=== PATIENT | female | born 1990 | race Caucasian/White ===

== ENCOUNTER 2017-04-15 14:21 | Emergency (ER) | payer SELFPAY ==
[2017-04-15 14:29] VITALS: BP 138/85
--- NOTE | 2017-04-15 15:19 | ER Document Report ---
HPI - HPI Patient complains to provider of: medication refill Pain Level: 3 Context: 27 yo female comes to ED today requesting refills of her Suboxone and Adderall. Pt reports her last dose was yesterday. Pt reports she is new to [facility] and had not established with primary care yet. Associated Symptoms: None Exacerbated by: Denies Relieved by: Denies Similar symptoms previously: No Recently seen / treated by doctor: No - DERM Skin Color: Normal Past Medical History - General Information source: Patient - Social History Smoking Status: Current Every Day Smoker Frequency of alcohol use: Social Drug Abuse: None Lives with: Family Family History: Reviewed & Not Pertinent Renal/ Medical History: Denies: Hx Peritoneal Dialysis Vertical Provider Document - CONSTITUTIONAL Agree With Documented VS: Yes Exam Limitations: No Limitations - INFECTION CONTROL TRAVEL OUTSIDE OF THE [place] IN LAST 30 DAYS: No - HEENT HEENT: Atraumatic, PERRLA - NECK Neck: Normal Inspection, Supple - RESPIRATORY Respiratory: Breath Sounds Normal, No Respiratory Distress O2 Sat by Pulse Oximetry: 97 - CARDIOVASCULAR Cardiovascular: Regular Rate, Regular Rhythm - GI/ABDOMEN Gastrointestinal: Abdomen Soft, Abdomen Non-Tender - MUSCULOSKELETAL/EXTREMETIES Musculoskeletal/Extremeties: CHACORTA KIRK - NEURO Level of Consciousness: Awake, Alert, Appropriate - DERM Integumentary: Warm, Dry Course - Re-evaluation Re-evalutation: 04/15/17 15:22 pt is alert, VSS. pt is not exhibiting any s/s withdrawl. pt was informed the ED does not refill Suboxone or Adderall and that she would have to get established with a primary care provider who can prescribe these medications. pt acknowledges understanding. pt is stable for discharge - Vital Signs Vital signs: Temp Pulse Resp BP Pulse Ox 98.8 F 107 H 16 138/85 H 97 04/15/17 14:25 04/15/17 14:25 04/15/17 14:25 04/15/17 14:25 04/15/17 14:25 Discharge - Discharge Clinical Impression: Medication refill Condition: Stable Disposition: HOME, SELF-CARE Additional Instructions: We are unable to refill your Suboxone and Adderall here in the ED I recommend you call local practices to establish care Referrals: QUINCY CHAVEZ MD [ACTIVE STAFF] - Follow up as needed
== END 2017-04-15 15:25 | disposition home or self-care (01) ==
LOC: ER 14:21
DX: Z76.0 Encounter for issue of repeat prescription (principal); Z79.899 Other long term (current) drug therapy; F17.200 Nicotine dependence, unspecified, uncomplicated
CPT/HCPCS: 99281

== ENCOUNTER 2017-05-08 12:20 | Emergency (ER) | payer SELFPAY ==
[2017-05-08 12:33] VITALS: BP 124/66
--- NOTE | 2017-05-08 13:16 | EKG REPORT ---
SEVERITY:- OTHERWISE NORMAL ECG - SINUS TACHYCARDIA : Confirmed by: Mk Torres MD 08-May-2017 13:15:52
[2017-05-08] MEDS ORDERED: KETOROLAC TROMETHAMINE 60 MG/2 ML SDV IM ONE (15:13)
--- NOTE | 2017-05-08 15:17 | ER Document Report ---
ED General - General Chief Complaint: Chest Pain Stated Complaint: CHEST PAIN Time Seen by Provider: 05/08/17 15:00 Notes: 27-year-old female presents the emergency department complaining of severe chest pain. 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 States that this began with a cough 2 weeks ago, 3 days ago she developed chest pain and 2 days ago she developed left arm pain. States that the pain is worse when she lays back flat. Denies any true shortness of breath just states it hurts too badly to take a deep breath. Denies any fevers, nausea, vomiting, diarrhea. Never had symptoms like this before, no cardiac history. TRAVEL OUTSIDE OF THE [place] IN LAST 30 DAYS: No - HPI Quality of pain: Sharp, Stabbing Past Medical History - General Information source: Patient - Social History Smoking Status: Current Every Day Smoker Chew tobacco use (# tins/day): No Frequency of alcohol use: None Drug Abuse: None Family History: Reviewed & Not Pertinent Renal/ Medical History: Denies: Hx Peritoneal Dialysis - Immunizations Hx Diphtheria, Pertussis, Tetanus Vaccination: Yes Review of Systems - Review of Systems Constitutional: No symptoms reported EENT: No symptoms reported Cardiovascular: See HPI Respiratory: See HPI Gastrointestinal: No symptoms reported Musculoskeletal: See HPI -: Yes All other systems reviewed and negative Physical Exam - Vital signs Vitals: Temp Pulse Resp BP Pulse Ox 99.6 F 110 H 18 124/66 96 05/08/17 12:31 05/08/17 12:31 05/08/17 12:31 05/08/17 12:31 05/08/17 12:31 Interpretation: Tachycardic - Notes Notes: GENERAL: Alert, anxious, tearful. HEAD: Normocephalic, atraumatic EYES: Pupils equal, round and reactive to light, extraocular movements intact. ENT: Oral mucosa moist, tongue midline. NECK: Full range of motion, supple, trachea midline. LUNGS: Clear to auscultation bilaterally, no wheezes, rales or rhonchi, no respiratory distress. Chest pain is tender to palpation, HEART: Tachycardic rate and rhythm, no murmurs, gallops, rubs. ABDOMEN: Soft, nontender, nondistended, bowel sounds present in all 4 quadrants. EXTREMITIES: Moves all 4 extremities spontaneously, however she does guard her left upper extremity, prefers not to lift her left arm at the shoulder but is able to do this with pain. No deformity, no tenderness to palpation. No cyanosis. NEUROLOGICAL: Alert and oriented x3, normal speech. PSYCH: tearful. SKIN: Warm, Dry, normal turgor, multiple scabs in various stages of healing across her body, no track dean noted. Course - Re-evaluation Re-evalutation: 05/08/17 17:13 CBC shows leukocytosis with a white count of 10.6, anemia with hemoglobin 9.7, CMP grossly unremarkable, lipase normal, chest x-ray shows multicentric left lower lobe pneumonia. Cardiac enzymes are negative, EKG is nonischemic. Multicentric left lower lobe pneumonia is consistent with her history of 2 weeks of cough and chills associated with left-sided chest pain and shortness of breath. Patient is only mildly tachycardic, she is not febrile, she is not tachypnea, she does not have any hypoxia, patient does not have any risk factors that make her high risk for discharge home such as pre-existing lung disease or diabetes, patient will be trialed on oral antibiotics as an outpatient along with steroids and breathing treatments as well as cough suppressant drops and Phenergan with codeine syrup. Patient will be discharged home. 05/08/17 17:49 On reexamination patient is feeling much better, looks much better, no longer crying with pain, states her pain is controlled. Patient informed that she is , will follow up with the health department as an outpatient. - Vital Signs Vital signs: Temp Pulse Resp BP Pulse Ox 99.6 F 110 H 18 124/66 96 05/08/17 12:31 05/08/17 12:31 05/08/17 12:31 05/08/17 12:31 05/08/17 12:31 - Laboratory Result Diagrams: 05/08/17 15:44 05/08/17 15:44 Laboratory results interpreted by me: 05/08/17 05/08/17 05/08/17 15:44 15:44 15:44 WBC 10.6 H RBC 3.17 L Hgb 9.7 L Hct 28.1 L Seg Neutrophils % 81.2 H Lymphocytes % 8.9 L Absolute Neutrophils 8.6 H BUN 4 L Creatinine 0.51 L Alkaline Phosphatase 133 H Lipase < 10.0 L Serum HCG, Qual POSITIVE H - EKG Interpretation by Me Additional EKG results interpreted by me: 05/08/17 17:14 EKG shows sinus tachycardia at a rate of 109, normal axis, normal intervals, no ST segment elevations or depressions, isolated T-wave inversions noted in lead III which are non-specific per my interpretation. Discharge - Discharge Clinical Impression: First trimester Left lower lobe pneumonia Qualifiers: Pneumonia type: due to unspecified organism Qualified Code(s): J18.1 - Lobar pneumonia, unspecified organism Condition: Stable Disposition: HOME, SELF-CARE Additional Instructions: Pneumonia Your examination indicates that you have pneumonia. This is an infection of the lung tissue, usually caused by bacteria or a virus. Symptoms include cough, fever, shaking chills, chest pain, shortness of breath, and coughing up bloody sputum. Treatment for bacterial pneumonia includes rest, antibiotics for 10 days, increasing your clear liquid intake, a cool mist humidifier at your bedside, and fever medication. Often, a repeat chest X-ray is performed in a few weeks-- even if you feel better--to ascertain whether the infection has completely resolved and no underlying lung problem is present. You should call the physician if you develop persistent vomiting, high fever that does not respond to fever medication, increasing shortness of breath , confusion, or lethargy. Also, failure to improve within two to three days is an indication for re-examination. You are . All of the medications I prescribed are safe in early . You need to follow-up with the provider of your choice regarding your . The health department is able to see you and help you to receive coverage through Medicare/Medicaid for your . They are also able to help set you up for appointments, ultrasounds, WIC and many other forms of assistance that may help you with this . You are . care is best started as early in as possible. You should take only medications approved by your physician. Acetaminophen can safely be taken for minor pains. As a rule, medication for chronic conditions such as asthma or seizures can safely be continued. You should discuss with the physician every medicine you take. Any regular exercise program can be continued. Talk to your physician, however, before engaging in competitive or demanding sports. Alcohol, smoking, and "street drugs" are dangerous to your baby. Cocaine is especially dangerous. Don't use any illicit drugs! Prescriptions: Benzonatate [Tessalon Perles 100 mg Capsule] 100 mg PO Q8HP PRN #40 capsule PRN Reason: Albuterol Sulfate [Ventolin HFA MDI 18 GM] 1 - 2 puff IH Q4H PRN #1 mdi PRN Reason: Amox Tr/Potassium Clavulanate [Augmentin 875-125 Tablet] 1 tab PO BID 10 Days tablet Phenylephrine HCl/Cod/Prometh [Phenergan Vc-Codeine Syrup] 5 ml PO QIDP PRN # 120 syrup PRN Reason: Prednisone 60 mg PO DAILY #15 tablet Forms: Return to Work Referrals: JOSE RANGEL DO [NO LOCAL MD] - [facility] - Follow up in 1 week
[2017-05-08 16:00] LABS: ABSOLUTE EOSINOPHILS # (AUTO) 0.1 10^3/uL (0.0-0.6); ABSOLUTE LYMPHOCYTES (AUTO) 0.9 10^3/uL (0.5-4.7); ABSOLUTE MONOCYTES (AUTO) 0.9 10^3/uL (0.1-1.4); ABSOLUTE NEUT (AUTO) 8.6 10^3/uL (1.7-8.2); BASOPHILS % (AUTO) 0.3 % (0-2); EOSINOPHILS % (AUTO) 1.1 % (0-6); HEMATOCRIT 28.1 % (36.0-47.0); HEMOGLOBIN 9.7 g/dL (12.0-15.5); LYMPHOCYTES % (AUTO) 8.9 % (13-45); MEAN CORPUSCULAR HEMOGLOBIN 30.5 pg (27.0-33.4); MEAN CORPUSCULAR HGB CONC 34.4 g/dL (32.0-36.0); MEAN CORPUSCULAR VOLUME 89 fl (80-97); MONOCYTES % (AUTO) 8.5 % (3-13); RED BLOOD COUNT 3.17 10^6/uL (3.72-5.28); RED CELL DISTRIBUTION WIDTH 13.7 % (11.5-14.0); SEGMENTED NEUTROPHILS % (AUTO) 81.2 % (42-78); WHITE BLOOD COUNT 10.6 10^3/uL (4.0-10.5)
[2017-05-08 16:20] LABS: ALANINE AMINOTRANSFERASE 33 U/L (9-52); ALBUMIN 3.7 g/dL (3.5-5.0); ALKALINE PHOSPHATASE 133 U/L (38-126); ANION GAP 11 (5-19); ASPARTATE AMINO TRANSFERASE 20 U/L (14-36); BILIRUBIN,DIRECT 0.4 mg/dL (0.0-0.4); BILIRUBIN,TOTAL 0.5 mg/dL (0.2-1.3); BLOOD UREA NITROGEN 4 mg/dL (7-20); CALCIUM 8.9 mg/dL (8.4-10.2); CARBON DIOXIDE 26 mmol/L (22-30); CHLORIDE 100 mmol/L (98-107); CREATINE KINASE 42 U/L (30-135); CREATININE RESULT 0.51 mg/dL (0.52-1.25); GLUCOSE 85 mg/dL (75-110); POTASSIUM 4.5 mmol/L (3.6-5.0); SODIUM 137.3 mmol/L (137-145); TOTAL PROTEIN 6.9 g/dL (6.3-8.2)
[2017-05-08 16:22] LABS: LIPASE < 10.0 U/L (23-300)
[2017-05-08 16:31] LABS: CREATINE KINASE MB 0.23 ng/mL (<4.55)
--- NOTE | 2017-05-08 16:31 | RADIOLOGY REPORT (SQ) ---
EXAM DESCRIPTION: CHEST PA/LAT COMPLETED DATE/TIME: 05/08/2017 4:05 pm REASON FOR STUDY: pain with deep breath, chest pain at rest COMPARISON: None. EXAM PARAMETERS: NUMBER OF VIEWS: two views TECHNIQUE: Digital Frontal and Lateral radiographic views of the chest acquired. RADIATION DOSE: NA LIMITATIONS: none FINDINGS: LUNGS AND PLEURA: The lungs are hyperexpanded. There is ill-defined opacification in ante rior aspect of left lower lung and possibly posterior opacification on the lateral view. MEDIASTINUM AND HILAR STRUCTURES: No masses or contour abnormalities. HEART AND VASCULAR STRUCTURES: Heart normal size. No evidence for failure. BONES: No acute findings. HARDWARE: None in the chest. OTHER: No other significant finding. IMPRESSION: Cannot exclude multicentric pneumonia in the left lower lung. TECHNICAL DOCUMENTATION: JOB ID: [id number] [employer]- All Rights Reserved
[2017-05-08 16:34] LABS: TROPONIN I < 0.012 ng/mL
== END 2017-05-08 17:53 | disposition home or self-care (01) ==
LOC: ER 12:20
DX: J18.1 Lobar pneumonia, unspecified organism (principal); R07.9 Chest pain, unspecified; F17.200 Nicotine dependence, unspecified, uncomplicated; M79.602 Pain in left arm; Z3A.00 Weeks of gestation of pregnancy not specified
CPT/HCPCS: 93005; 99285; 96372; 36415; 82553; 82550; 83690; 84703; 85025; 80053; 84484; 71020; 93010; J1885

== ENCOUNTER 2019-07-23 09:39 | Emergency (ER) | payer MEDICAID ==
--- NOTE | 2019-07-23 09:49 | ER Document Report ---
ED Medical Screen (RME) - General Chief Complaint: Abdominal Pain Stated Complaint: ABDOMINAL PAIN Time Seen by Provider: 07/23/19 09:47 Mode of Arrival: Ambulatory Information source: Patient Notes: 29-year-old female with no prior history presents to the emergency department in [facility]. Reports she is having severe abdominal pain generalized. Reports it started last night when she was wrapping presents. She denies fever vomiting diarrhea. Denies pain with void. Reports she was able to eat a couple bites of muffins this morning. Patient is tender to palpate no matter where I palpate on her abdomen. I have greeted and performed a rapid initial assessment of this patient. A comprehensive ED assessment and evaluation of the patient, analysis of test results and completion of the medical decision making process will be conducted by additional ED providers. TRAVEL OUTSIDE OF THE [place] IN LAST 30 DAYS: No Past Medical History Renal/ Medical History: Denies: Hx Peritoneal Dialysis - Immunizations Hx Diphtheria, Pertussis, Tetanus Vaccination: Yes Physical Exam - Vital signs Vitals: Temp Pulse Resp BP Pulse Ox 97.5 F 115 H 24 H 112/64 99 07/23/19 09:42 07/23/19 09:42 07/23/19 09:42 07/23/19 09:42 07/23/19 09:42 Course - Vital Signs Vital signs: Temp Pulse Resp BP Pulse Ox 97.5 F 115 H 24 H 112/64 99 07/23/19 09:42 07/23/19 09:42 07/23/19 09:42 07/23/19 09:42 07/23/19 09:42
[2019-07-23 10:13] LABS: HEMATOCRIT 37.8 % (36.0-47.0); HEMOGLOBIN 12.3 g/dL (12.0-15.5); MEAN CORPUSCULAR HEMOGLOBIN 29.5 pg (27.0-33.4); MEAN CORPUSCULAR HGB CONC 32.6 g/dL (32.0-36.0); MEAN CORPUSCULAR VOLUME 91 fl (80-97); PLATELET COUNT 268 10^3/uL (150-450); RED BLOOD COUNT 4.18 10^6/uL (3.72-5.28); WHITE BLOOD COUNT 17.7 10^3/uL (4.0-10.5)
[2019-07-23 10:29] LABS: ABSOLUTE LYMPHOCYTES# (MANUAL) 0.7 10^3/uL (0.5-4.7); ALBUMIN 4.2 g/dL (3.5-5.0); ALKALINE PHOSPHATASE 50 U/L (38-126); ANION GAP 11 (5-19); ASPARTATE AMINO TRANSFERASE 19 U/L (14-36); BAND NEUTROPHILS % (MANUAL) 7 % (3-5); BASOPHILS % (MANUAL) 0 % (0-2); BILIRUBIN,DIRECT 0.1 mg/dL (0.0-0.4); BILIRUBIN,TOTAL 0.7 mg/dL (0.2-1.3); BLOOD UREA NITROGEN 14 mg/dL (7-20); CALCIUM 9.2 mg/dL (8.4-10.2); CARBON DIOXIDE 26 mmol/L (22-30); CHLORIDE 101 mmol/L (98-107); EOSINOPHILS % (MANUAL) 0 % (0-6); GLUCOSE 99 mg/dL (75-110); LYMPHOCYTES % (MANUAL) 4 % (13-45); MONOCYTES % (MANUAL) 0 % (3-13); PLATELET COMMENT ADEQUATE; POTASSIUM 3.9 mmol/L (3.6-5.0); RBC MORPHOLOGY COMMENT NORMO-CYTIC/CHROMIC; SEGMENTED NEUTROPHILS % (MAN) 89 % (42-78); TOTAL CELLS COUNTED 100; TOTAL PROTEIN 7.6 g/dL (6.3-8.2)
[2019-07-23 10:34] LABS: APPEARANCE,URINE CLOUDY; BILIRUBIN,URINE SMALL (NEGATIVE); COLOR,URINE AMBER; GLUCOSE, URINE NEGATIVE (NEGATIVE); KETONES,URINE TRACE mg/dL (NEGATIVE); LEUKOCYTE ESTERASE,URINE MODERATE (NEGATIVE); NITRITE,URINE NEGATIVE (NEGATIVE); PROTEIN,URINE 100 mg/dL (NEGATIVE); URINE SPECIFIC GRAVITY 1.046
[2019-07-23] MEDS ORDERED: PHENAZOPYRIDINE HCL 200 MG TABLET PO ONE (10:44)
[2019-07-23] MEDS ORDERED: KETOROLAC TROMETHAMINE 60 MG/2 ML SDV IM ONE (10:44)
[2019-07-23] MEDS ORDERED: HYDROMORPHONE HCL INJ/PF 2 MG/ML AMPULE IV ONE ×2 (12:01→13:53)
[2019-07-23] MEDS ORDERED: ONDANSETRON HCL INJ/PF 4 MG/2 ML SDV IV ONE (12:01)
[2019-07-23] MEDS ORDERED: NORMAL SALINE 1000 ML 1,000 ML IV ONE (12:03)
--- NOTE | 2019-07-23 12:10 | ER Document Report ---
ED GI/ - General Mode of Arrival: Ambulatory Information source: Patient TRAVEL OUTSIDE OF THE [place] IN LAST 30 DAYS: No <JOSESITO XIONG - Last Filed: 07/23/19 15:36> <KARLY LAURENT - Last Filed: 07/23/19 20:16> - General Chief Complaint: Abdominal Pain Stated Complaint: ABDOMINAL PAIN Time Seen by Provider: 07/23/19 09:47 - HPI Notes: 07/23/19 12:05 Patient complains of generalized abdominal pain that started yesterday. Pain is sharp. Past surgical history includes . Patient denies any nausea or vomiting or urinary complaints. No chest pain or shortness of breath. She had a tattoo placed on the back of her neck approximately 1 week ago but no other trauma or procedures recently. The neck tattoo is healed without difficulty. Patient denies being . She denies any ill contacts. She says the pain started when she was wrapping presents last night. No skin findings. No other complaints. The pain has been constant. (JOSESITO XIONG) - Related Data Allergies/Adverse Reactions: No Known Allergies Allergy (Verified 07/23/19 09:59) Past Medical History - General Information source: Patient - Social History Smoking Status: Current Every Day Smoker Chew tobacco use (# tins/day): No Frequency of alcohol use: None Drug Abuse: None Family History: Reviewed & Not Pertinent Patient has suicidal ideation: No Patient has homicidal ideation: No Renal/ Medical History: Denies: Hx Peritoneal Dialysis - Immunizations Hx Diphtheria, Pertussis, Tetanus Vaccination: Yes <JOSESITO XIONG - Last Filed: 07/23/19 15:36> Review of Systems - Review of Systems Constitutional: denies: Chills, Fever Gastrointestinal: Abdominal pain. denies: Vomiting -: Yes All other systems reviewed and negative <JOSESITO XIONG - Last Filed: 07/23/19 15:36> Physical Exam - Vital signs Interpretation: Normal - General General appearance: Appears well, Alert - HEENT Head: Normocephalic, Atraumatic Eyes: Normal Pupils: PERRL - Respiratory Respiratory status: No respiratory distress Chest status: Nontender Breath sounds: Normal Chest palpation: Normal - Cardiovascular Rhythm: Regular Heart sounds: Normal auscultation Murmur: No - Abdominal Inspection: Normal Distension: No distension Bowel sounds: Normal Tenderness: Tender, Other - NO CVA TENDERNESS. No: Rebound Organomegaly: No organomegaly - Back Back: Normal, Nontender. No: CVA tenderness - Extremities General upper extremity: Normal inspection, Nontender, Normal color, Normal ROM, Normal temperature General lower extremity: Normal inspection, Nontender, Normal color, Normal ROM, Normal temperature, Normal weight bearing. No: Homero's sign - Neurological Neuro grossly intact: Yes Cognition: Normal Orientation: AAOx4 [place] Coma Scale Eye Opening: Spontaneous [place] Coma Scale Verbal: Oriented [place] Coma Scale Motor: Obeys Commands [place] Coma Scale Total: 15 Speech: Normal Motor strength normal: LUE, RUE, LLE, RLE Sensory: Normal - Psychological Associated symptoms: Normal affect, Normal mood - Skin Skin Temperature: Warm Skin Moisture: Dry Skin Color: Normal <JOSESITO XIONG - Last Filed: 07/23/19 15:36> - Vital signs Vitals: Temp Pulse Resp BP Pulse Ox 97.5 F 115 H 24 H 112/64 99 07/23/19 09:42 07/23/19 09:42 07/23/19 09:42 07/23/19 09:42 07/23/19 09:42 Course - Laboratory Result Diagrams: 07/23/19 09:55 07/23/19 09:55 <JOSESITO XIONG - Last Filed: 07/23/19 15:36> - Laboratory Result Diagrams: 07/23/19 09:55 07/23/19 09:55 <KARLY LAURENT - Last Filed: 07/23/19 20:16> - Re-evaluation Re-evalutation: 07/23/19 12:09 LABS REVIEWED. URINE APPEARS DIRTY WITH ELEVATED SQ EPI'S. (JOSESITO XIONG) - Vital Signs Vital signs: Temp Pulse Resp BP Pulse Ox 97.5 F 115 H 24 H 112/64 99 07/23/19 09:42 07/23/19 09:42 07/23/19 09:42 07/23/19 09:42 07/23/19 09:42 - Laboratory Laboratory results interpreted by me: 07/23/19 07/23/19 07/23/19 09:55 09:55 10:15 WBC 17.7 H Seg Neuts % (Manual) 89 H Band Neutrophils % 7 H Lymphocytes % (Manual) 4 L Monocytes % (Manual) 0 L Abs Neuts (Manual) 17.0 H Abs Monocytes (Manual) 0.0 L Lipase 13.1 L Urine Protein 100 H Urine Ketones TRACE H Urine Nitrite Urine Bilirubin SMALL H Urine Urobilinogen 2.0 H Ur Leukocyte Esterase MODERATE H Urine Ascorbic Acid 40 H 07/23/19 17:13 WBC Seg Neuts % (Manual) Band Neutrophils % Lymphocytes % (Manual) Monocytes % (Manual) Abs Neuts (Manual) Abs Monocytes (Manual) Lipase Urine Protein 30 H Urine Ketones Urine Nitrite POSITIVE H Urine Bilirubin Urine Urobilinogen 4.0 H Ur Leukocyte Esterase Urine Ascorbic Acid Discharge <JOSESITO XIONG - Last Filed: 07/23/19 15:36> <KARLY LAURENT - Last Filed: 07/23/19 20:16> - Discharge Clinical Impression: UTI (urinary tract infection), Bacterial vaginitis Abdominal pain Qualifiers: Abdominal location: generalized Qualified Code(s): R10.84 - Generalized abdominal pain Leukocytosis Qualifiers: Leukocytosis type: unspecified Qualified Code(s): D72.829 - Elevated white blood cell count, unspecified Condition: Fair Disposition: HOME, SELF-CARE Additional Instructions: Today in the emergency department your urinalysis did show definite evidence of a urinary tract infection. You also have evidence of bacterial vaginosis on the swab we obtained from your pelvic exam. This can sometimes be due to new soaps or detergents or can be associated with sexual intercourse but is not necessarily sexually transmitted. Please take the cephalexin twice a day for 6 days and please take the Flagyl twice a day for 7 days to treat both the urine and then as well as the bacterial vaginosis. I expect after at least 2 days of antibiotics you should start to feel better. If you start having fevers vomiting and you are not able to hold down your medications you need to be seen. Otherwise you can just follow-up with your regular doctor for maintenance exams. He can also use Tylenol every 6 hours as needed 650 mg and ibuprofen every 6 hours for baseline pain control and make sure you are eating and drinking well. Prescriptions: Ibuprofen 600 mg PO Q6HP PRN 3 Days #36 tablet PRN Reason: Cephalexin [Cephalexin 500 MG Tablet] 500 mg PO BID 6 Days #11 tablet Metronidazole [Flagyl 500 mg Tablet] 500 mg PO BID 7 Days #14 tablet
--- NOTE | 2019-07-23 16:01 | RADIOLOGY REPORT (SQ) ---
EXAM DESCRIPTION: CT ABD/PELVIS WITH IV ORAL COMPLETED DATE/TIME: 07/23/2019 3:10 pm REASON FOR STUDY: ABD PAIN COMPARISON: None. TECHNIQUE: CT scan of the abdomen and pelvis performed using helical scanning technique with dynamic intravenous contrast injection. Oral contrast. Images reviewed with lung, soft tissue, and bone win dows. Reconstructed coronal and sagittal MPR images reviewed. Delayed images for evaluation of the ur inary system also acquired. All images stored on PACS. All CT scanners at this facility use dose modulation, iterative reconstruction, and/or weight based d osing when appropriate to reduce radiation dose to as low as reasonably achievable (ALARA). [facility]: Dose Right [facility]: CareDose [facility]: Dose Right [facility]: Teradose 4D [facility]: [employer]) CONTRAST TYPE AND DOSE: contrast/concentration: Isovue 350.00 mg/ml; Total Contrast Delivered: 46.0 ml; Total Saline Delivered: 65.0 ml RENAL FUNCTION: BUN 14 creatinine 0.64 RADIATION DOSE: CT Rad equipment meets quality standard of care and radiation dose reduction techniq ues were employed. CTDIvol: 4.8 mGy. DLP: 482 mGy-cm.. LIMITATIONS: Paucity of intra- abdominal fat. FINDINGS: LOWER CHEST: No significant findings. No nodules or infiltrates. LIVER: Hepatomegaly versus prominent Stephen's lobe. SPLEEN: Normal size. No focal lesions. PANCREAS: No masses. No significant calcifications. No adjacent inflammation or peripancreatic fluid collections. Pancreatic duct not dilated. GALLBLADDER: No identified stones by CT criteria. No inflammatory changes to suggest cholecystitis. ADRENAL GLANDS: No significant masses or asymmetry. RIGHT KIDNEY AND URETER: No solid masses. No significant calcifications. No hydronephrosis or hyd roureter. LEFT KIDNEY AND URETER: No solid masses. No significant calcifications. No hydronephrosis or hydr oureter. AORTA AND VESSELS: No aneurysm. No dissection. Renal arteries, SMA, celiac without stenosis. RETROPERITONEUM: No retroperitoneal adenopathy, hemorrhage or masses. BOWEL AND PERITONEAL CAVITY: No masses or inflammatory changes. No free fluid or peritoneal masses. APPENDIX: Not identified. PELVIS: No mass. No free fluid. Normal bladder. ABDOMINAL WALL: No masses. No hernias. BONES: No significant or acute findings. OTHER: No other significant finding. IMPRESSION: Hepatomegaly versus prominent Stephen's lobe. No other significant or acute finding. TECHNICAL DOCUMENTATION: JOB ID: [id number] Quality ID # [id number]: Final reports with documentation of one or more dose reduction techniques (e.g., Au tomated exposure control, adjustment of the mA and/or kV according to patient size, use of iterative reconstruction technique) 2010 [employer]- All Rights Reserved Reading location - IP/workstation name: [email or web address]
[2019-07-23] MEDS ORDERED: ACETAMINOPHEN 325 MG TABLET PO ONE (17:18)
--- NOTE | 2019-07-23 17:19 | ER Document Report ---
Doctor's Note Notes: at time of sign out CT had been negative pending the pelvic ultrasound her white count was 18. Prior surgical history only included a . Reportedly the history was that she had left and generalized abdominal pain since yesterday here she is received a few doses of Dilaudid per prior [facility] ED note when she was 27 yo p/t ED for "refills Suboxone & Adderall"
--- NOTE | 2019-07-23 17:41 | RADIOLOGY REPORT (SQ) ---
EXAM DESCRIPTION: U/S NON-OB PELVIS W/O DOP COMPLETED DATE/TIME: 07/23/2019 5:06 pm REASON FOR STUDY: LLQ PAIN COMPARISON: None. TECHNIQUE: Dynamic and static grayscale images acquired of the pelvis via transabdominal approach an d recorded on PACS. Additional selected color Doppler and spectral images recorded. LIMITATIONS: None. FINDINGS: UTERUS: Contour normal. No mass. ENDOMETRIAL STRIPE: No focal or generalized thickening. No masses. CERVIX: 2.6 cm. No nabothian cysts. RIGHT OVARY AND DOPPLER: Normal size. No worrisome masses. Normal arterial vascular flow without evid ence for torsion. LEFT OVARY AND DOPPLER: Normal size. No worrisome masses. Normal arterial vascular flow without evide nce for torsion. FREE FLUID: None noted. OTHER: No other significant finding. MEASUREMENTS: UTERUS: 9.2 x 5.2 x 3.6 cm. ENDOMETRIAL STRIPE: 2 mm. RIGHT OVARY: 3.7 x 2.7 x 1.8 cm. LEFT OVARY: 3.2 x 3.2 x 2.2 cm. IMPRESSION: NORMAL PELVIC ULTRASOUND BY TRANSABDOMINAL TECHNIQUE. TECHNICAL DOCUMENTATION: JOB ID: [id number] [employer]- All Rights Reserved Rev-12/14 Reading location - IP/workstation name: [email or web address]
[2019-07-23 17:46] LABS: APPEARANCE,URINE CLEAR; BILIRUBIN,URINE NEGATIVE (NEGATIVE); COLOR,URINE AMBER; GLUCOSE, URINE NEGATIVE (NEGATIVE); KETONES,URINE NEGATIVE (NEGATIVE); LEUKOCYTE ESTERASE,URINE NEGATIVE (NEGATIVE); NITRITE,URINE POSITIVE (NEGATIVE); PROTEIN,URINE 30 mg/dL (NEGATIVE)
[2019-07-23 18:15] LABS: URINE SPECIFIC GRAVITY > 1.060
[2019-07-23 18:49] LABS: BACTERIA (WET MOUNT) 3+ BACTERIA SEEN; EPITHELIALS (WET MOUNT) 3+ EPITHELIALS SEEN; T.VAGINALIS (WET MOUNT) NO TRICHOMONAS SEEN; WBCS (WET MOUNT) 2+ WBCS SEEN; YEAST (WET MOUNT) NO YEAST SEEN
[2019-07-23] MEDS ORDERED: ONDANSETRON ODT 4 MG TAB (6 TAB/ER DISP) PO PRN (19:49)
[2019-07-23] MEDS ORDERED: METRONIDAZOLE 500 MG TABLET PO ONE (19:49)
[2019-07-23] MEDS ORDERED: CEPHALEXIN 500 MG CAPSULE PO ONE (19:50)
[2019-07-23 20:17] VITALS: BP 110/50
[2019-07-23 20:28] LABS: CHLAM PCR NOT DETECTED (NOT DETECT)
== END 2019-07-23 20:17 | disposition home or self-care (01) ==
LOC: ER 09:39
DX: N39.0 Urinary tract infection, site not specified (principal); N76.0 Acute vaginitis; B96.89 Other specified bacterial agents as the cause of diseases classified elsewhere; R10.84 Generalized abdominal pain; F17.200 Nicotine dependence, unspecified, uncomplicated
CPT/HCPCS: 96376; 99284; 96361; 96374; 96375; 36415; 87210; 83690; 85025; 81025; 80053; 81001; 87491; 87591; 76856; 74177; J3490 ×3; J1885; J1170; J2405; J7030

== ENCOUNTER 2019-07-26 10:08 | Emergency (ER) | payer MEDICAID ==
[2019-07-26 11:23] LABS: APPEARANCE,URINE CLEAR; BILIRUBIN,URINE NEGATIVE (NEGATIVE); COLOR,URINE YELLOW; GLUCOSE, URINE NEGATIVE (NEGATIVE); KETONES,URINE NEGATIVE (NEGATIVE); PROTEIN,URINE 100 mg/dL (NEGATIVE); URINE SPECIFIC GRAVITY 1.016
[2019-07-26] MEDS ORDERED: CEFTRIAXONE INJ 250 MG VIAL IM ONE (11:54)
[2019-07-26] MEDS ORDERED: AZITHROMYCIN 250 MG TABLET PO ONE (11:54)
[2019-07-26] MEDS ORDERED: LIDOCAINE 1% INJ-PF (10 MG/ML) 30 ML SDV ONE (12:29)
[2019-07-26] MEDS ORDERED: LIDOCAINE 1% INJ (10 MG/ML) 10 ML MDV INJ ONE (12:51)
--- NOTE | 2019-07-26 13:20 | ER Document Report ---
ED General - General Chief Complaint: STD Exposure Stated Complaint: URINARY PROBLEM Time Seen by Provider: 07/26/19 11:38 Primary Care Provider: [facility] [Provider Group] - Follow up in 3-5 days [facility] [Provider Group] - Follow up in 3-5 days Notes: 29-year-old female presents for treatment for positive gonorrhea. Patient was seen in this ER a few days ago and was diagnosed with a UTI and had a pelvic. Patient states her urinary tract symptoms which included lower abdominal pain, low back pain have improved. Patient has no complaints at this time. Denies fever, nausea/vomiting, chest pain, shortness of breath. TRAVEL OUTSIDE OF THE [place] IN LAST 30 DAYS: No - Related Data Allergies/Adverse Reactions: No Known Allergies Allergy (Verified 07/23/19 09:59) Home Medications: Lamotrigine, adderall, Current course of antibiotics (initiated 07/23/19) Past Medical History - General Last Menstrual Period: One Week Ago - Social History Smoking Status: Current Every Day Smoker Chew tobacco use (# tins/day): No Frequency of alcohol use: None Drug Abuse: Marijuana Family History: Reviewed & Not Pertinent Patient has suicidal ideation: No Patient has homicidal ideation: No Renal/ Medical History: Denies: Hx Peritoneal Dialysis Past Surgical History: Reports: Hx Section, Hx Tonsillectomy - Immunizations Hx Diphtheria, Pertussis, Tetanus Vaccination: Yes Review of Systems - Review of Systems Notes: Constitutional: Negative for fever. HENT: Negative for sore throat. Eyes: Negative for visual changes. Cardiovascular: Negative for chest pain. Respiratory: Negative for shortness of breath. Gastrointestinal: Negative for abdominal pain, vomiting or diarrhea. Genitourinary: Negative for dysuria. Musculoskeletal: Negative for back pain. Skin: Negative for rash. Neurological: Negative for headaches, weakness or numbness. 10 point ROS negative except as marked above and in HPI. Physical Exam - Vital signs Vitals: Temp Pulse Resp BP Pulse Ox 98.6 F 121 H 18 127/83 H 97 07/26/19 10:29 07/26/19 10:29 07/26/19 10:29 07/26/19 10:29 07/26/19 10:29 - Notes Notes: GENERAL: Well-appearing, well-nourished and in no acute distress. HEAD: Atraumatic, normocephalic. EYES: Extraocular movements intact, sclera anicteric, conjunctiva are normal. NECK: Normal range of motion, supple without lymphadenopathy or JVD. EXTREMITIES: Normal range of motion, no pitting or edema. No clubbing or cyanosis. NEUROLOGICAL: Cranial nerves II through XII grossly intact. Normal speech, normal gait. PSYCH: Normal mood, normal affect. SKIN: Warm, Dry, normal turgor, no rashes or lesions noted. Course - Re-evaluation Re-evalutation: 07/26/19 13:16 well-appearing, nontoxic 29-year-old female presents for treatment for gonorrhea. Patient was seen in this ER and was called back due to positive gonorrhea. Patient was also diagnosed with a UTI and is still taking her antibiotics. Patient states her symptoms have improved. Patient is without any complaints at this time. Patient's urine analysis is improving. Patient was treated with Rocephin IM and azithromycin. Patient given return precautions and follow-up with PCP. Patient voices understanding and agrees with plan of care. 07/26/19 13:59 Vitals reassuring. - Vital Signs Vital signs: Temp Pulse Resp BP Pulse Ox 98.8 F 98 16 113/96 H 99 07/26/19 13:54 07/26/19 13:54 07/26/19 13:54 07/26/19 13:54 07/26/19 13:54 - Laboratory Laboratory results interpreted by me: 07/26/19 11:01 Urine Protein 100 H Urine Urobilinogen 2.0 H Leukocyte Esterase Rfl TRACE H Discharge - Discharge Clinical Impression: Gonorrhea Condition: Stable Disposition: HOME, SELF-CARE Instructions: Antibiotic Shot ([facility]), Gonorrhea ([facility]) Additional Instructions: You were treated for gonorrhea and chlamydia today. Please follow-up with your primary care doctor in 3 to 5 days. Return to ER for any worsening symptoms, including worsening pain, nausea/vomiting, pelvic pain, fever, vaginal discharge/bleeding, or any other symptoms that are concerning to you. Forms: Return to Work Referrals: [facility] [Provider Group] - Follow up in 3-5 days [facility] [Provider Group] - Follow up in 3-5 days
[2019-07-26 13:54] VITALS: BP 113/96
== END 2019-07-26 14:05 | disposition home or self-care (01) ==
LOC: ER 10:08
DX: A54.9 Gonococcal infection, unspecified (principal); R39.198 Other difficulties with micturition; R10.30 Lower abdominal pain, unspecified; M54.5 Low back pain; F17.200 Nicotine dependence, unspecified, uncomplicated; Z79.899 Other long term (current) drug therapy
CPT/HCPCS: 99283; 96372; 87086; 81025; 81001; Q0144; J0696

== ENCOUNTER 2020-07-19 22:17 | Emergency (ER) | payer MEDICAID ==
[2020-07-19 22:35] VITALS: BP 143/77
--- NOTE | 2020-07-19 22:37 | ER Document Report ---
ED General - General Chief Complaint: Other Stated Complaint: DETOX/ Time Seen by Provider: 07/19/20 22:31 Information source: Patient Notes: Patient is a 21-year-old female was brought into emergency room by [facility] department. Patient states that she is approximately 14 weeks gestation she currently is on Suboxone daily and Adderall. She has been incarcerated since yesterday and she is missed her 1 dose of Suboxone and Adderall today. Patient states she is due to get out in the morning and she will be back with her medications then. She states that she is just getting a little bit nauseated and a little shaky but no diarrhea no vomiting have occurred yet. She is wanting to know if there is anything we can do to help her. She denies any other problems at this time. She denies any spotting or abdominal pain or discomfort. TRAVEL OUTSIDE OF THE [place] IN LAST 30 DAYS: No - HPI Onset: This morning Onset/Duration: Gradual Quality of pain: Achy Severity: Mild Pain Level: 2 Associated symptoms: Nausea. denies: Diarrhea, Vomiting Exacerbated by: Denies Relieved by: Denies Similar symptoms previously: Yes Recently seen / treated by doctor: No - Related Data Allergies/Adverse Reactions: No Known Allergies Allergy (Verified 07/23/19 09:59) Past Medical History - General Information source: Patient - Social History Smoking Status: Current Every Day Smoker Cigarette use (# per day): Yes - Half pack Chew tobacco use (# tins/day): No Smoking Education Provided: Yes Frequency of alcohol use: Occasional Drug Abuse: Prescription drugs Lives with: Other - Currently incarcerated Family History: Reviewed & Not Pertinent Renal/ Medical History: Denies: Hx Peritoneal Dialysis Past Surgical History: Reports: Hx Section, Hx Tonsillectomy - Immunizations Hx Diphtheria, Pertussis, Tetanus Vaccination: Yes Review of Systems - Review of Systems Constitutional: Weakness EENT: No symptoms reported Cardiovascular: No symptoms reported Respiratory: No symptoms reported Gastrointestinal: No symptoms reported Genitourinary: No symptoms reported Female Genitourinary: No symptoms reported Musculoskeletal: No symptoms reported Skin: No symptoms reported Hematologic/Lymphatic: No symptoms reported Neurological/Psychological: No symptoms reported -: Yes All other systems reviewed and negative Physical Exam - Vital signs Vitals: Temp Pulse Resp BP Pulse Ox 98.0 F 88 18 143/77 H 100 07/19/20 22:26 12/21/20 22:26 07/19/20 22:26 07/19/20 22:26 07/19/20 22:26 Interpretation: Hypertensive - Notes Notes: PHYSICAL EXAMINATION: GENERAL: Well-appearing, well-nourished and in no acute distress. HEAD: Atraumatic, normocephalic. LUNGS: Breath sounds clear to auscultation bilaterally and equal. No wheezes rales or rhonchi. HEART: Regular rate and rhythm without murmurs ABDOMEN: Soft, nontender, nondistended abdomen. No guarding, no rebound. No masses appreciated. Musculoskeletal: Normal range of motion, no pitting or edema. No cyanosis. NEUROLOGICAL: Normal speech, normal gait. Normal sensory, motor exams PSYCH: Normal mood, normal affect. SKIN: Warm, Dry, normal turgor, no rashes or lesions noted. Course - Re-evaluation Re-evalutation: 07/19/20 22:41 I discussed the case with Dr. Arvizu and he agrees there is nothing at this point patient get up for second morning we will do. We can treat her symptoms with some Zofran and patient is in agreement with this she just does not want to get nauseated. She will get out in the morning and she will resume her normal meds according to her [employer]. - Vital Signs Vital signs: Temp Pulse Resp BP Pulse Ox 98.0 F 88 18 143/77 H 100 07/19/20 22:26 07/19/20 22:26 07/19/20 22:26 07/19/20 22:26 07/19/20 22:26 - Laboratory Results Critical Laboratory Results Reviewed: No Critical Results - Radiology Results Critical Radiology Results Reviewed: No Critical Results Discharge - Discharge Clinical Impression: Drug withdrawal Qualifiers: Substance type: opioid Qualified Code(s): F11.23 - Opioid dependence with withdrawal Condition: Stable Disposition: HOME, SELF-CARE Instructions: Drug Effects ([facility]), Nausea or Vomiting, Nonspecific ([facility]) Additional Instructions: Medication as we discussed he can take it about every 4-6 hours as needed. When you get out resume your medications as directed by your [employer]ER. Return to ER if you have any concerns or problems. Forms: Elevated Blood Pressure, Smoking Cessation Education Referrals: JOSE VALLES MD [ACTIVE PROVISIONAL STAFF] - Follow up as needed
[2020-07-19] MEDS ORDERED: ONDANSETRON 4 MG TAB.RAPDIS PO ONE (22:38)
[2020-07-19] MEDS ORDERED: ONDANSETRON ODT 4 MG TAB (6 TAB/ER DISP) PO PRN (22:45)
== END 2020-07-19 22:50 | disposition home or self-care (01) ==
LOC: ER 22:17
DX: O99.322 Drug use complicating pregnancy, second trimester (principal); F11.23 Opioid dependence with withdrawal; O99.332 Smoking (tobacco) complicating pregnancy, second trimester; F17.210 Nicotine dependence, cigarettes, uncomplicated; Z3A.14 14 weeks gestation of pregnancy
CPT/HCPCS: 99283